=== PATIENT | female | born 1950 | race Hispanic/Latino ===

== ENCOUNTER 2017-08-28 09:29 | Emergency (ER) | payer OTHER ==
[2017-08-28] MEDS ORDERED: SODIUM CHLORIDE 0.9% 1000ML 1,000 ML IV ONE (09:48)
[2017-08-28] MEDS ORDERED: ONDANSETRON HCL 4 MG/2 ML VIAL ONE (09:48)
[2017-08-28 09:49] LABS: BASOPHILS % (AUTO) 0.4 % (0.0-5.0); EOSINOPHILS % (AUTO) 1.2 % (0.0-8.0); HEMATOCRIT 34.6 % (36-48); LYMPHOCYTES % (AUTO) 6.1 % (21.0-51.0); MEAN CORPUSCULAR HEMOGLOBIN 28.7 pg (27.0-33.0); MEAN CORPUSCULAR HGB CONC 33.6 g/dL (32.0-36.0); MEAN CORPUSCULAR VOLUME 85.4 fL (79-99); MONOCYTES % (AUTO) 2.2 % (3.0-13.0); NEUTROPHILS % (AUTO) 90.1 % (40.0-77.0); PLATELET COUNT (AUTO) 226 K/uL (130-400); RED BLOOD CELL COUNT(AUTO) 4.06 MIL/uL (4.00-5.50); RED CELL DISTRIBUTION WIDTH 13.5 % (11.0-15.5); WHITE BLOOD COUNT (AUTO) 12.5 K/uL (4.8-10.8)
[2017-08-28 10:03] LABS: CREATININE 1.3 mg/dL (0.5-1.5)
[2017-08-28 10:18] LABS: BILIRUBIN,TOTAL 0.4 mg/dL (0.2-1.0); TOTAL PROTEIN, SERUM 8.2 g/dL (6.0-8.3)
[2017-08-28] MEDS ORDERED: IOPAMIDOL-370 75 ML VIAL IV ONE (10:52)
[2017-08-28] MEDS ORDERED: INSULIN HUMULIN R 100 UNIT/ML 3ML ONE (11:34)
== END 2017-08-28 12:26 | disposition home or self-care (01) ==
LOC: EDH 09:29
DX: A09 Infectious gastroenteritis and colitis, unspecified (principal); E11.65 Type 2 diabetes mellitus with hyperglycemia; I10 Essential (primary) hypertension; E78.5 Hyperlipidemia, unspecified; Z90.49 Acquired absence of other specified parts of digestive tract; Z98.890 Other specified postprocedural states
CPT/HCPCS: 36415; 74177; 80053; 82553; 82948; 83605; 83690; 85025; 96361; 96374; 96375; 99285; J1815; J2405; J7030; Q9967

== ENCOUNTER → 2019-05-08 | Outpatient (CLI) | payer OTHER, MEDICARE | END | disposition home or self-care (01) | LOC: RAH 07:47 | PROVIDERS: ATTEND Family Medicine | DX: M51.16 Intervertebral disc disorders with radiculopathy, lumbar region (principal); M48.061 Spinal stenosis, lumbar region without neurogenic claudication; M51.36 Other intervertebral disc degeneration, lumbar region | CPT/HCPCS: 72148 ==

== ENCOUNTER 2019-07-06 12:53 | Observation (INO) | payer OTHER, MEDICARE ==
[~2019-07-06] VITALS: Ht 160 cm; Wt 63.9 kg
[2019-07-06 14:29] LABS: BASOPHILS % (AUTO) 0.8 % (0.0-5.0); EOSINOPHILS % (AUTO) 1.4 % (0.0-8.0); HEMATOCRIT 28.8 % (36-48); LYMPHOCYTES % (AUTO) 19.3 % (21.0-51.0); MEAN CORPUSCULAR HEMOGLOBIN 27.7 pg (27.0-33.0); MEAN CORPUSCULAR HGB CONC 31.9 g/dL (32.0-36.0); MEAN CORPUSCULAR VOLUME 86.7 fL (79-99); MONOCYTES % (AUTO) 3.9 % (3.0-13.0); NEUTROPHILS % (AUTO) 74.4 % (40.0-77.0); PLATELET COUNT (AUTO) 236 K/uL (130-400); RED BLOOD CELL COUNT(AUTO) 3.32 MIL/uL (4.00-5.50); RED CELL DISTRIBUTION WIDTH 12.7 % (11.0-15.5); WHITE BLOOD COUNT (AUTO) 6.4 K/uL (4.8-10.8)
[2019-07-06 14:42] LABS: CREATININE 1.4 mg/dL (0.5-1.5); POTASSIUM 4.7 mmol/L (3.5-5.1)
[2019-07-06 14:47] LABS: ALBUMIN 3.3 g/dL (3.5-5.0); BILIRUBIN,TOTAL 0.2 mg/dL (0.2-1.0); TOTAL PROTEIN, SERUM 7.3 g/dL (6.0-8.3)
[2019-07-06] MEDS ORDERED: ACETAMINOPHEN 325 MG TAB ONE (15:36)
[2019-07-06 16:10] LABS: APPEARANCE,URINE Cloudy (CLEAR); BILIRUBIN,URINE Negative (NEGATIVE); COLOR,URINE Yellow (YELLOW); GLUCOSE, URINE (UA) Negative (NEGATIVE); KETONES,URINE Negative (NEGATIVE); LEUKOCYTE ESTERASE ,URINE Large (NEGATIVE); NITRATE,URINE Positive (NEGATIVE); OCCULT BLOOD,URINE Trace (NEGATIVE); PH,URINE 7.5 (5.0-8.0); PROTEIN,URINE Negative (NEGATIVE); UROBILINOGEN,URINE 0.2 mg/dL (0.2-1.0)
[2019-07-06 16:31] LABS: BACTERIA,URINE Moderate /HPF (None Seen); MUCUS,URINE Few LPF (None Seen); RBC,URINE 0-1 /HPF (0-1); SQUAMOUS EPITHELIAL CELL,UR 0-2 /HPF (0-2)
[2019-07-06] MEDS ORDERED: CEFTRIAXONE SODIUM 1 GM ONE (16:53)
[2019-07-06] MEDS ORDERED: DEXTROSE 50%-WATER 50 ML DISP.SYRIN IV ONE (17:52)
[2019-07-06] MEDS ORDERED: ONDANSETRON HCL 4 MG/2 ML VIAL IVP PRN (19:15)
[2019-07-06] MEDS ORDERED: ACETAMINOPHEN 325 MG TAB PO PRN (19:15)
[2019-07-06] MEDS: CEFTRIAXONE SODIUM 1 GM IVP SCH (20:00)
[2019-07-06 20:34] VITALS: BP 127/63
[2019-07-06] MEDS ORDERED: INSU100I24 SQ (21:15)
[2019-07-06] MEDS ORDERED: METF-527 PO (21:17)
[2019-07-06] MEDS ORDERED: PRAV40TA3 PO (21:17)
[2019-07-06] MEDS ORDERED: TORS20TA4 PO (21:20)
[2019-07-06] MEDS ORDERED: CETI10TA57 PO (21:21)
[2019-07-06] MEDS ORDERED: AEC81 PO (21:22)
[2019-07-06] MEDS ORDERED: LISI-613 PO (21:23)
[2019-07-06] MEDS ORDERED: ONDA4TAB10 PO (21:25)
[2019-07-06] MEDS ORDERED: FAMO40TA7 PO (21:28)
[2019-07-06] MEDS ORDERED: OLME1TAB82 PO (21:28)
[2019-07-06] MEDS ORDERED: PANT40TA25 PO (21:29)
[2019-07-07] VITALS (7 sets, daily range): BP systolic 97–130; BP diastolic 50–62
[2019-07-07] MEDS ORDERED: ONDANSETRON HCL 4 MG/2 ML VIAL IVP PRN (01:30)
[2019-07-07 05:57] LABS: EOSINOPHILS % (AUTO) 8.9 % (0.0-8.0); HEMATOCRIT 28.5 % (36-48); LYMPHOCYTES % (AUTO) 37.7 % (21.0-51.0); MEAN CORPUSCULAR HEMOGLOBIN 27.6 pg (27.0-33.0); MEAN CORPUSCULAR HGB CONC 31.6 g/dL (32.0-36.0); MEAN CORPUSCULAR VOLUME 87.4 fL (79-99); MONOCYTES % (AUTO) 5.8 % (3.0-13.0); NEUTROPHILS % (AUTO) 46.6 % (40.0-77.0); PLATELET COUNT (AUTO) 258 K/uL (130-400); RED BLOOD CELL COUNT(AUTO) 3.26 MIL/uL (4.00-5.50); RED CELL DISTRIBUTION WIDTH 12.7 % (11.0-15.5); WHITE BLOOD COUNT (AUTO) 6.1 K/uL (4.8-10.8)
[2019-07-07 06:11] LABS: CREATININE 1.1 mg/dL (0.5-1.5); MAGNESIUM 1.8 mg/dL (1.80-2.40); PHOSPHORUS 3.5 mg/dL (2.5-4.9); POTASSIUM 4.7 mmol/L (3.5-5.1)
[2019-07-07] MEDS: ASPIRIN 81 MG EC TAB PO SCH (08:25)
[2019-07-07] MEDS: PANTOPRAZOLE SODIUM 40 MG TABLET.DR PO SCH (08:25)
[2019-07-07] MEDS: CETIRIZINE HCL 5 MG TABLET PO SCH (08:25)
--- NOTE | 2019-07-07 10:17 | NUR ---
INITIAL SW spoke with patient. Patient states she lives with daughter, Cathie Arellano, [phone]. No home services. DME: glucometer (uses insulin). Patient is independent and drives. PCP is Dr. Al Willson. Pharmacy is [facility] located [address] in [place]. DCP is home. Addendum: 07/07/19 at 1020 by NOELLE ASIF SS Amended: Links added.
[2019-07-07] MEDS ORDERED: CLOTRIMAZOLE 30 GM CREAM.GM. TP PRN (14:00)
[2019-07-07] MEDS ORDERED: INSULIN HUMULIN R 100 UNIT/ML 3ML ONE (20:49)
[2019-07-07] MEDS: CEFTRIAXONE SODIUM 1 GM IVP SCH (20:50)
[2019-07-07] MEDS ORDERED: DEXTROSE 50%-WATER 50 ML DISP.SYRIN IV ONE (23:46)
--- NOTE | 2019-07-07 23:58 | NUR ---
bs patient c/o being hot , patient clammy , diaphoretic, blood sugar by fingerstick 21, stat glucose ordered by lab per protocal, one amp 50 % destrose ivp given slowly,
--- NOTE | 2019-07-08 00:09 | NUR ---
bs repeat bloodsugar by fingerstick 140, patient not diaphoretic or weakness ,per patient feels better
[2019-07-08] MEDS ORDERED: GLUCAGON 1MG KIT 1 MG ML IM PRN (00:15)
[2019-07-08] MEDS ORDERED: DEXTROSE 50%-WATER 50 ML DISP.SYRIN IV PRN (00:15)
[2019-07-08 03:00] VITALS: BP 116/60
[2019-07-08 05:00] LABS: BASOPHILS % (AUTO) 0.6 % (0.0-5.0); EOSINOPHILS % (AUTO) 10.3 % (0.0-8.0); HEMATOCRIT 28.6 % (36-48); LYMPHOCYTES % (AUTO) 35.1 % (21.0-51.0); MEAN CORPUSCULAR HEMOGLOBIN 27.9 pg (27.0-33.0); MEAN CORPUSCULAR HGB CONC 31.5 g/dL (32.0-36.0); MEAN CORPUSCULAR VOLUME 88.5 fL (79-99); MONOCYTES % (AUTO) 6.7 % (3.0-13.0); NEUTROPHILS % (AUTO) 47.1 % (40.0-77.0); PLATELET COUNT (AUTO) 236 K/uL (130-400); RED BLOOD CELL COUNT(AUTO) 3.23 MIL/uL (4.00-5.50); RED CELL DISTRIBUTION WIDTH 12.7 % (11.0-15.5); WHITE BLOOD COUNT (AUTO) 6.2 K/uL (4.8-10.8)
[2019-07-08 05:23] LABS: CREATININE 1.2 mg/dL (0.5-1.5); POTASSIUM 4.2 mmol/L (3.5-5.1)
[2019-07-08] MEDS ORDERED: INSULIN HUMULIN R 100 UNIT/ML 3ML SQ SCH (07:30)
[2019-07-08] MEDS: PANTOPRAZOLE SODIUM 40 MG TABLET.DR PO SCH (08:16)
[2019-07-08] MEDS: CETIRIZINE HCL 5 MG TABLET PO SCH (08:16)
[2019-07-08] MEDS: ASPIRIN 81 MG EC TAB PO SCH (08:16)
[2019-07-08 08:19] VITALS: BP 106/53
[2019-07-08] MEDS ORDERED: OLMESARTAN PO SCH (09:00)
[2019-07-08] MEDS ORDERED: METFORMIN HCL 2000 MG PO SCH (09:00)
[2019-07-08] MEDS ORDERED: HYDROCHLOROTHIAZIDE PO SCH (09:00)
[2019-07-08] MEDS ORDERED: TORSEMIDE 20 MG TAB PO SCH (09:00)
[2019-07-08 11:27] VITALS: BP 115/59
--- NOTE | 2019-07-08 11:43 | NUR ---
PATIENTS BLOOD GLUCOSE LEVEL OF 325. PATIENT STATES SHE FEELS OK. NO DISTRESS NOTED. ISIDORO FERGUSON MADE AWARE. WILL CONTINUE TO MONITOR CLOSELY.
[2019-07-08 15:57] VITALS: BP 113/61
== END 2019-07-08 16:40 | disposition home or self-care (01) ==
LOC: EDH 12:53 → EDHIP 18:16 → 3DH 20:50
PROVIDERS: ADMIT Internal Medicine Critical Care Medicine; ATTEND Internal Medicine Critical Care Medicine
DX: E11.649 Type 2 diabetes mellitus with hypoglycemia without coma (principal); N39.0 Urinary tract infection, site not specified; B96.89 Other specified bacterial agents as the cause of diseases classified elsewhere; B35.3 Tinea pedis; E78.5 Hyperlipidemia, unspecified; I10 Essential (primary) hypertension; K21.9 Gastro-esophageal reflux disease without esophagitis; Z79.4 Long term (current) use of insulin; Z79.82 Long term (current) use of aspirin; Z90.49 Acquired absence of other specified parts of digestive tract; Z88.8 Allergy status to other drugs, medicaments and biological substances
CPT/HCPCS: 36415 ×3; 80048 ×2; 80053; 81001; 82270; 82947; 82948 ×16; 83605; 83735; 84100; 85025 ×3; 87077; 87088; 87186; 87804 ×2; 93005; 96361; 96374; 99285; G0378 ×7; J0696 ×2; J1815; J7070 ×2

== ENCOUNTER 2020-08-20 08:33 | Emergency (ER) | payer OTHER, MEDICARE ==
[~2020-08-20 08:33] MED LIST: AEC81 PO; CETI10TA57 PO; FAMO40TA7 PO; METF-527 PO; OLME-7 PO; ONDA4TAB10 PO; PANT40TA54 PO; PRAV40TA3 PO; TORS20TA4 PO
[2020-08-20] MEDS ORDERED: DEXTROSE 50%-WATER 50 ML DISP.SYRIN IV ONE (08:54)
[2020-08-20 09:18] LABS: BASOPHILS % (AUTO) 0.5 % (0.0-5.0); EOSINOPHILS % (AUTO) 1.2 % (0.0-8.0); HEMATOCRIT 31.5 % (36-48); MEAN CORPUSCULAR HEMOGLOBIN 28.7 pg (27.0-33.0); MEAN CORPUSCULAR VOLUME 86.8 fL (79-99); MONOCYTES % (AUTO) 3.7 % (3.0-13.0); NEUTROPHILS % (AUTO) 69.3 % (40.0-77.0); PLATELET COUNT (AUTO) 235 K/uL (130-400); RED BLOOD CELL COUNT(AUTO) 3.63 MIL/uL (4.00-5.50); RED CELL DISTRIBUTION WIDTH 12.9 % (11.0-15.5); WHITE BLOOD COUNT (AUTO) 10.2 K/uL (4.8-10.8)
[2020-08-20 09:28] LABS: CREATININE 1.5 mg/dL (0.5-1.5)
[2020-08-20 09:32] LABS: ALBUMIN 4.5 g/dL (3.5-5.0); BILIRUBIN,TOTAL 0.3 mg/dL (0.2-1.0); TOTAL PROTEIN, SERUM 8.8 g/dL (6.0-8.3)
[2020-08-20 12:08] LABS: APPEARANCE,URINE Clear (CLEAR); BILIRUBIN,URINE Negative (NEGATIVE); COLOR,URINE Yellow (YELLOW); GLUCOSE, URINE (UA) Negative (NEGATIVE); KETONES,URINE Negative (NEGATIVE); LEUKOCYTE ESTERASE ,URINE Moderate (NEGATIVE); NITRATE,URINE Negative (NEGATIVE); OCCULT BLOOD,URINE Negative (NEGATIVE); PROTEIN,URINE Negative (NEGATIVE); UROBILINOGEN,URINE 0.2 mg/dL (0.2-1.0)
[2020-08-20 12:43] LABS: BACTERIA,URINE Many /HPF (None Seen); RBC,URINE 0-1 /HPF (0-1)
[2020-08-20] MEDS ORDERED: CEFTRIAXONE SODIUM 1 GM ONE (13:24)
== END 2020-08-20 13:51 | disposition home or self-care (01) ==
LOC: EDH 08:33
DX: E13.649 Other specified diabetes mellitus with hypoglycemia without coma (principal); I10 Essential (primary) hypertension; E78.5 Hyperlipidemia, unspecified; Z79.899 Other long term (current) drug therapy; Z90.49 Acquired absence of other specified parts of digestive tract; Z88.8 Allergy status to other drugs, medicaments and biological substances
CPT/HCPCS: 36415; 80053; 81001; 82550; 82948 ×3; 83605; 84484; 85025; 87077; 87088; 87186; 93005; 96365; 96375; 99284; J0696; J7070

== ENCOUNTER 2022-12-03 00:01 | Emergency (ER) | payer OTHER, MEDICARE ==
[~2022-12-03] VITALS: Ht 160 cm; Wt 63.5 kg
[2022-12-03 01:19] LABS: BASOPHILS # (AUTO) 0.07 K/uL (0.00-0.20); BASOPHILS % (AUTO) 0.7 % (0.0-5.0); EOSINOPHILS # (AUTO) 0.06 K/uL (0.00-0.70); EOSINOPHILS % (AUTO) 0.6 % (0.0-8.0); IMMATURE GRANULOCYTE ABSOLUTE 0.02 K/uL (0-1); LYMPHOCYTES # (AUTO) 2.6 K/uL (1.0-4.8); LYMPHOCYTES % (AUTO) 25.1 % (21.0-51.0); MEAN CORPUSCULAR HEMOGLOBIN 29.3 pg (27.0-33.0); MEAN CORPUSCULAR HGB CONC 32.9 g/dL (32.0-36.0); MEAN CORPUSCULAR VOLUME 89.1 fL (79-99); MONOCYTES # (AUTO) 0.6 K/uL (0.1-1.0); MONOCYTES % (AUTO) 5.8 % (3.0-13.0); NEUTROPHILS # (AUTO) 6.9 K/uL (1.8-7.7); NEUTROPHILS % (AUTO) 67.6 % (40.0-77.0); PLATELET COUNT (AUTO) 209 K/uL (130-400); RED BLOOD CELL COUNT(AUTO) 3.48 MIL/uL (4.00-5.50); RED CELL DISTRIBUTION WIDTH 13.2 % (11.0-15.5); WHITE BLOOD COUNT (AUTO) 10.3 K/uL (4.8-10.8)
[2022-12-03 01:28] LABS: CREATININE 2.3 mg/dL (0.5-1.5); POTASSIUM 4.5 mmol/L (3.5-5.1)
[2022-12-03 01:32] LABS: ALBUMIN 4.3 g/dL (3.5-5.0); BILIRUBIN,TOTAL 0.2 mg/dL (0.2-1.0); TOTAL PROTEIN, SERUM 8.5 g/dL (6.0-8.3)
[2022-12-03] MEDS ORDERED: 0.9%NACL 1000ML 1,000 ML IV ONE (04:00)
[2022-12-03] MEDS ORDERED: METOCLOPRAMIDE 10 MG/2 ML VIAL IVP ONE (04:00)
[2022-12-03] MEDS ORDERED: INSULIN HUMULIN R 100 UNIT/ML 3ML IV ONE (04:00)
[2022-12-03] MEDS ORDERED: KETOROLAC 30MG VIAL (30MG/ML) IVP ONE (04:00)
[2022-12-03] MEDS ORDERED: FAMOTIDINE 20MG VIAL IV ONE (04:00)
[2022-12-03 04:16] LABS: APPEARANCE,URINE TURBID (CLEAR); BILIRUBIN,URINE NEGATIVE (NEGATIVE); COLOR,URINE LIGHT-ORANGE (YELLOW); GLUCOSE, URINE (UA) NEGATIVE (NEGATIVE); KETONES,URINE 5 mg/dL (NEGATIVE); LEUKOCYTE ESTERASE ,URINE 75 Leu/uL (NEGATIVE); NITRATE,URINE NEGATIVE (NEGATIVE); OCCULT BLOOD,URINE NEGATIVE (NEGATIVE); PROTEIN,URINE 50 mg/dL (NEGATIVE); UROBILINOGEN,URINE 3 mg/dL (0.2-1.0)
[2022-12-03 04:19] LABS: ADD UA MICROSCOPIC YES
[2022-12-03 04:21] LABS: BACTERIA,URINE MOD /HPF (None Seen); MUCUS,URINE FEW LPF (None Seen); SQUAMOUS EPITHELIAL CELL,UR FEW /HPF (0-2); WBC CLUMP FEW /HPF (0-1); WBC,URINE 26-50 /HPF (0-1)
[2022-12-03 06:15] VITALS: BP 120/60; PULSE 82; RESP 18; O2SAT 99
[2022-12-03] MEDS ORDERED: CEPH500B PO (06:19)
[2022-12-03] MEDS ORDERED: METO-296 PO (06:19)
[2022-12-03] MEDS ORDERED: PANT40TA PO (06:19)
[2022-12-03] MEDS ORDERED: CEFTRIAXONE 2GM VIAL IVPB ONE (06:30)
== END 2022-12-03 06:37 | disposition home or self-care (01) ==
LOC: EDH 00:01
DX: K20.90 Esophagitis, unspecified without bleeding (principal); N39.0 Urinary tract infection, site not specified; E11.22 Type 2 diabetes mellitus with diabetic chronic kidney disease; I12.9 Hypertensive chronic kidney disease with stage 1 through stage 4 chronic kidney disease, or unspecified chronic kidney disease; N18.9 Chronic kidney disease, unspecified; Z79.82 Long term (current) use of aspirin; Z79.84 Long term (current) use of oral hypoglycemic drugs; Z79.899 Other long term (current) drug therapy; Z98.890 Other specified postprocedural states; Z88.8 Allergy status to other drugs, medicaments and biological substances
CPT/HCPCS: 99285; 74176; 96374; 96375; 96361; 84484; 80053; 83690; 85025; 87077 ×2; 87088; 87186 ×2; 81001; 36415; 93005; J1815; J3490; J7030; J0696; J1885; J2765

== ENCOUNTER 2023-06-10 15:54 | Emergency (ER) | payer OTHER, MEDICARE ==
[~2023-06-10] VITALS: Ht 160 cm; Wt 63.5 kg
[~2023-06-10 15:54] MED LIST changes: +CEPH500B PO; +METO-296 PO; +PANT40TA PO
[2023-06-10] MEDS: ACETAMINOPHEN 500 MG TABLET PO ONE (16:30)
[2023-06-10 18:49] VITALS: BP 114/78; PULSE 78; RESP 18; O2SAT 98
== END 2023-06-10 18:52 | disposition home or self-care (01) ==
LOC: EDH 15:54
DX: S20.211A Contusion of right front wall of thorax, initial encounter (principal); I10 Essential (primary) hypertension; E11.9 Type 2 diabetes mellitus without complications; Z79.84 Long term (current) use of oral hypoglycemic drugs; Z79.899 Other long term (current) drug therapy; Z98.890 Other specified postprocedural states; V89.2XXA Person injured in unspecified motor-vehicle accident, traffic, initial encounter; Y93.I9 Activity, other involving external motion; Y92.488 Other paved roadways as the place of occurrence of the external cause; Y99.8 Other external cause status
CPT/HCPCS: 71045; 93005

== ENCOUNTER → 2024-09-23 | Outpatient (CLI) | payer MEDICARE ==
[~2024-09-23] MED LIST changes: +OLME-29 PO; -OLME-7 PO; +ONDA-243 PO; -ONDA4TAB10 PO; -PRAV40TA3 PO; +PRAV40TA62 PO
--- NOTE | 2024-09-23 08:58 | HMCIMG ---
DEXA BONE DENSITY SURVEY HISTORY: Menopause COMPARISON: None FINDINGS: Bone densitometry study was performed. Bone mineral density of the lumbar spine is 1.089 gram per centimeter square which corresponds to a T score of 0.4 and a Z score of 2.8. Bone mineral density of the left hip is 0.711 grams per centimeter square which corresponds to a T score of -1.9 and a Z score of -0.1. IMPRESSION: 1. Normal bone mineral density of the lumbar spine and osteopenia of left hip.
== END | disposition home or self-care (01) ==
LOC: RAH 07:45
PROVIDERS: ATTEND Family Medicine
DX: M85.88 Other specified disorders of bone density and structure, other site (principal); Z78.0 Asymptomatic menopausal state
CPT/HCPCS: 77080